=== PATIENT | female | born 1950 | race Two or more races ===

== ENCOUNTER 2024-02-19 20:55 | Inpatient (IN) | payer MEDICARE, MEDICAID ==
[~2024-02-19] VITALS: Ht 152.4 cm; Wt 60.8 kg
--- NOTE | 2024-02-19 21:00 | NUR ---
PT BIBA TO [facility] 5 FOR SYNCOPAL EPISODE.
[2024-02-19] MEDS: IV NS 1000 ML 1,000 ML IV ONE ×2 (21:03→23:03)
[2024-02-19 21:45] LABS: BASOPHILS # (AUTO) 0.1 K/UL (0.0-0.2); BASOPHILS % (AUTO) 0.5 % (0.0-2.0); EOSINOPHILS # (AUTO) 0.2 K/uL (0.0-0.7); EOSINOPHILS % (AUTO) 1.5 % (0.0-7.0); HEMOGLOBIN 11.3 g/dL (10.9-14.3); LYMPHOCYTES # (AUTO) 2.9 K/uL (0.8-4.8); LYMPHOCYTES % (AUTO) 22.4 % (20.5-51.5); MEAN CORPUSCULAR HEMOGLOBIN 29.2 uug (24.7-32.8); MEAN CORPUSCULAR HGB CONC 32 g/dL (32.3-35.6); MEAN CORPUSCULAR VOLUME 90.6 fL (75.5-95.3); MONOCYTES # (AUTO) 0.7 K/uL (0.1-1.30); MONOCYTES % (AUTO) 5.7 % (0.0-11.0); NEUTROPHILS # (AUTO) 9.2 K/uL (1.8-8.9); NEUTROPHILS % (AUTO) 69.9 % (38.5-71.5); PLATELET COUNT (AUTO) 259 K/uL (179-408); RED BLOOD CELL COUNT(AUTO) 3.87 MIL/uL (3.63-4.92); RED CELL DISTRIBUTION WIDTH 18.2 % (12.3-17.7); WHITE BLOOD COUNT (AUTO) 13.2 K/uL (3.8-11.8)
[2024-02-19 21:56] LABS: DIFFERENTIAL COMMENT 1
[2024-02-19 21:57] LABS: CALCIUM 9.3 mg/dL (8.5-10.1); CARBON DIOXIDE 23 mmol/L (21-32); CHLORIDE 108 mmol/L (98-107); CREATININE 1.2 mg/dL (0.6-1.3); GLUCOSE 211 mg/dL (74-106); POTASSIUM 3.3 mmol/L (3.5-5.1); SODIUM SERUM 143 mmol/L (136-145); UREA NITROGEN, BLOOD 21 mg/dL (7-18)
[2024-02-19 22:05] LABS: ALANINE AMINOTRANSFERASE 18 U/L (14-59); ALBUMIN 3.1 g/dL (3.4-5.0); ALKALINE PHOSPHATASE 96 U/L (50-136); ASPARTATE AMINOTRANSFERASE 14 U/L (15-37); BILIRUBIN,TOTAL 0.3 mg/dL (0.2-1.0); LIPASE 28 U/L (16-77); NT-PRO BNP 230 pg/mL (0-125); TOTAL PROTEIN, SERUM 7.4 g/dL (6.4-8.2)
[2024-02-19 22:11] LABS: LACTIC ACID 3.7 mmol/L (0.4-2.0)
--- NOTE | 2024-02-19 23:00 | NUR ---
Patient is hardstick, take time to insert PIV
[2024-02-19] MEDS ORDERED: ONDANSETRON 4 MG/2 ML VIAL ONE (23:01)
[2024-02-19] MEDS: ONDANSETRON 4 MG/2 ML VIAL IV ONE (23:04)
[2024-02-20] MEDS ORDERED: POTASSIUM CHLORIDE 50 ML ONE (00:19)
[2024-02-20] MEDS: POTASSIUM CHLORIDE 50 ML IV SCH (00:20)
--- NOTE | 2024-02-20 01:00 | NUR ---
PT'S DAUGHTER, ANGIE'Vidhi # IS : [phone].
[2024-02-20 02:54] LABS: *BILIRUBIN,URIN NEGATIVE (NEGATIVE); *CLARITY,URINE CLEAR (CLEAR); *COLOR,URINE YELLOW (YELLOW); *KETONES,URINE NEGATIVE (NEGATIVE); *PROTEIN,URINE NEGATIVE (NEGATIVE); *UROBILINOGEN,URINE 0.2 E.U./dl (NORMAL); LEUKOCYTE ESTERASE ,URINE NEGATIVE (NEGATIVE); NITRITE, URINE NEGATIVE (NEGATIVE); UGLUCOSE NEGATIVE (NEGATIVE)
[2024-02-20 02:55] LABS: *BLOOD, URINE TRACE (NEGATIVE)
[2024-02-20 03:02] LABS: RBC,URINE 0-3 /HPF (0-3); SQUAMOUS EPITHELIAL CELL,UR FEW /HPF (NONE SEEN); YEAST,URINE MODERATE /HPF (NONE SEEN)
[2024-02-20 03:04] LABS: BACTERIA,URINE NONE SEEN /HPF (NONE SEEN); WBC,URINE 0-3 /HPF (0-3)
--- NOTE | 2024-02-20 06:12 | NUR ---
Call [facility] for patient's acceptance
[2024-02-20] MEDS ORDERED: SENN8.6C5 PO (06:20)
[2024-02-20] MEDS ORDERED: FOLI1TAB94 PO (06:20)
[2024-02-20] MEDS ORDERED: CALC-469 (06:20)
[2024-02-20] MEDS ORDERED: METF500T PO (06:20)
[2024-02-20] MEDS ORDERED: DOCU100T10 PO (06:20)
[2024-02-20] MEDS ORDERED: ATOR40TA PO (06:20)
[2024-02-20] MEDS ORDERED: ASPI81TA31 PO (06:20)
[2024-02-20] MEDS ORDERED: ESCI5TAB PO (06:20)
[2024-02-20] MEDS ORDERED: LOSA25TA3 PO (06:20)
[2024-02-20] MEDS ORDERED: OMEP20CA15 PO (06:20)
[2024-02-20] MEDS ORDERED: METH2.5T (06:20)
--- NOTE | 2024-02-20 06:20 | NUR ---
GIULIANO spoke with Julianna Tompkins, patient is accepted for Tele bed for room 314
[2024-02-20] MEDS ORDERED: ACETAMINOPHEN 325 MG TABLET PO PRN (06:30)
[2024-02-20 07:14] LABS: BASOPHILS % (AUTO) 0.3 % (0.0-2.0); HEMATOCRIT 34.3 % (31.2-41.9); HEMOGLOBIN 11.2 g/dL (10.9-14.3); LYMPHOCYTES # (AUTO) 1.7 K/uL (0.8-4.8); LYMPHOCYTES % (AUTO) 9.9 % (20.5-51.5); MEAN CORPUSCULAR HEMOGLOBIN 29.3 uug (24.7-32.8); MEAN CORPUSCULAR HGB CONC 33 g/dL (32.3-35.6); MEAN CORPUSCULAR VOLUME 89.3 fL (75.5-95.3); MONOCYTES # (AUTO) 0.8 K/uL (0.1-1.30); MONOCYTES % (AUTO) 4.7 % (0.0-11.0); NEUTROPHILS # (AUTO) 14.3 K/uL (1.8-8.9); NEUTROPHILS % (AUTO) 85.1 % (38.5-71.5); PLATELET COUNT (AUTO) 222 K/uL (179-408); RED BLOOD CELL COUNT(AUTO) 3.84 MIL/uL (3.63-4.92); WHITE BLOOD COUNT (AUTO) 16.8 K/uL (3.8-11.8)
[2024-02-20 07:21] LABS: DIFFERENTIAL COMMENT 1
[2024-02-20 07:49] LABS: ALANINE AMINOTRANSFERASE 14 U/L (14-59); ALBUMIN 2.9 g/dL (3.4-5.0); ALKALINE PHOSPHATASE 92 U/L (50-136); ASPARTATE AMINOTRANSFERASE 11 U/L (15-37); BILIRUBIN,DIRECT 0.1 mg/dL (0.0-0.2); BILIRUBIN,TOTAL 0.5 mg/dL (0.2-1.0); CALCIUM 8.5 mg/dL (8.5-10.1); CARBON DIOXIDE 25 mmol/L (21-32); CHLORIDE 108 mmol/L (98-107); CREATININE 0.9 mg/dL (0.6-1.3); GLUCOSE 194 mg/dL (74-106); MAGNESIUM 1.6 mg/dL (1.8-2.4); NT-PRO BNP 251 pg/mL (0-125); PHOSPHOROUS 3.1 mg/dL (2.5-4.9); POTASSIUM 3.9 mmol/L (3.5-5.1); SODIUM SERUM 143 mmol/L (136-145); UREA NITROGEN, BLOOD 17 mg/dL (7-18)
[2024-02-20] MEDS: PANTOPRAZOLE SODIUM 40 MG TABLET.DR PO SCH (07:50)
[2024-02-20] MEDS ORDERED: PANTOPRAZOLE SODIUM 40 MG TABLET.DR PO ONE (07:50)
--- NOTE | 2024-02-20 08:04 | NUR ---
SBAR report given to DAE Beckham via telephone, pt trans to tele room 314.
--- NOTE | 2024-02-20 08:30 | NUR ---
RECEIVED PATIENT VIA GURNEY. CHECKED V/S SIGNS AND SKIN ASSESSMENT DONE. BELONGINGS ACCOUNTED FOR. KEEP PATIENT CLEAN AND COMFORTABLE. NOTIFIED DR. FLOREZ AN ADMITTING
[2024-02-20 08:48] VITALS: BP 149/78; TEMP 98.4; O2SAT 93
[2024-02-20] MEDS: IV NS 1000 ML 1,000 ML IV PRN (10:41)
[2024-02-20] MEDS: PIPERACILLIN SODIUM/TAZOBACTAM 3.375 G in IV DEXTROSE 5% 100 ML IV SCH (10:42)
[2024-02-20] MEDS: MAGNESIUM SULFATE/D5W 100 ML IV SCH (10:52)
--- NOTE | 2024-02-20 11:48 | NUR ---
BLADDER SCAN DONE BY ASSIGNED NURSE ORDERED BY DR GAUTAM HOUSE WITH [address] GAUTAM HOUSE TO INSERT A F/CATH AND LEAVE IN. TASK DELEGATED TO ASSIGNED NURSE.
[2024-02-20 11:58] VITALS: BP 147/77; TEMP 98.5; O2SAT 93
[2024-02-20] MEDS ORDERED: PIPERACILLIN SODIUM/TAZOBACTAM 3.375 G in IV DEXTROSE 5% 50 ML IV SCH (12:00)
[2024-02-20] MEDS ORDERED: CALC500T89 PO (12:37)
[2024-02-20] MEDS ORDERED: POLY17PO4 PO (12:37)
[2024-02-20 16:42] VITALS: BP 141/78; TEMP 98.9; O2SAT 96
[2024-02-20] MEDS: MAGNESIUM HYDROXIDE 30 ML LIQUID UDC PO PRN (18:20)
--- NOTE | 2024-02-20 18:21 | NUR ---
IMAGING TESTS DONE TODAY. PATIENT SCHEDULED TO HAVE MRCP MICAH; NO TIME YET IN DAY TIME. SOZYN GIVEN FOR UTI. NO ASE NOTED FROM IV ATB. 2 BAGS OF MAGNESIUM GIVEN. FAMILY ON THE BEDSIDE. QUINONES DRAINING WELL BY GRAVITY WITH YELLOW URINE OUTPUT 200.
--- NOTE | 2024-02-20 18:25 | NUR ---
PATIENT NPO POST MIDNIGHT.
--- NOTE | 2024-02-20 18:31 | NUR ---
MOM GIVEN. PATIENT TOLERATED IT. WILL ENDORSE TO THE NEXT SHIFT.
--- NOTE | 2024-02-20 19:30 | NUR ---
Received patient lying in bed asleep but easily arouse to verbal stimuli. No signs or symptoms of pain or SOB. IV site on right AC intact and patent. NSR on tele with HR of 93/min. F/C intact and draining via gravity. Safety measure initiated and call light within reached.
[2024-02-20 19:39] VITALS: BP 120/51; TEMP 98.4; O2SAT 94
[2024-02-21 00:24] VITALS: BP 138/69; TEMP 98.2; O2SAT 94
[2024-02-21 04:40] VITALS: BP 141/82; TEMP 99; O2SAT 94
--- NOTE | 2024-02-21 05:04 | NUR ---
Slept well through out the shift. In no apparent distress. No complain of pain or SOB. No adverse effect noted from IV antibiotics. IVF continue to infused. F/C intact an draining via gravity. Safety measure maintained and call light within reached.
[2024-02-21 07:21] VITALS: BP 136/75; TEMP 98.5
[2024-02-21 07:54] VITALS: BP 138/69; TEMP 98.5; O2SAT 93
[2024-02-21 07:54] LABS: CALCIUM 8.4 mg/dL (8.5-10.1); CARBON DIOXIDE 29 mmol/L (21-32); CHLORIDE 111 mmol/L (98-107); CREATININE 0.8 mg/dL (0.6-1.3); GLUCOSE 147 mg/dL (74-106); MAGNESIUM 2.2 mg/dL (1.8-2.4); POTASSIUM 3.6 mmol/L (3.5-5.1); SODIUM SERUM 144 mmol/L (136-145); UREA NITROGEN, BLOOD 12 mg/dL (7-18)
[2024-02-21 09:47] LABS: BASOPHILS # (AUTO) 0.1 K/UL (0.0-0.2); BASOPHILS % (AUTO) 0.6 % (0.0-2.0); EOSINOPHILS # (AUTO) 0.3 K/uL (0.0-0.7); EOSINOPHILS % (AUTO) 2.6 % (0.0-7.0); HEMATOCRIT 29.3 % (31.2-41.9); HEMOGLOBIN 9.7 g/dL (10.9-14.3); LYMPHOCYTES # (AUTO) 1.9 K/uL (0.8-4.8); LYMPHOCYTES % (AUTO) 19.1 % (20.5-51.5); MEAN CORPUSCULAR HEMOGLOBIN 29.6 uug (24.7-32.8); MEAN CORPUSCULAR HGB CONC 33 g/dL (32.3-35.6); MEAN CORPUSCULAR VOLUME 89.6 fL (75.5-95.3); MONOCYTES # (AUTO) 0.6 K/uL (0.1-1.30); MONOCYTES % (AUTO) 6.4 % (0.0-11.0); NEUTROPHILS # (AUTO) 7.2 K/uL (1.8-8.9); NEUTROPHILS % (AUTO) 71.3 % (38.5-71.5); PLATELET COUNT (AUTO) 197 K/uL (179-408); RED BLOOD CELL COUNT(AUTO) 3.27 MIL/uL (3.63-4.92); RED CELL DISTRIBUTION WIDTH 17.5 % (12.3-17.7); WHITE BLOOD COUNT (AUTO) 10.1 K/uL (3.8-11.8)
[2024-02-21 09:48] LABS: DIFFERENTIAL COMMENT 1
--- NOTE | 2024-02-21 11:00 | NUR ---
Patient picked up by ambulance via gurney to have procedure MRCP at [facility]. patient remained NPO. consent and questionnaires sent with patient. left in fair stable condition, vitals within normal limits. received call from lab, patient with gram + cocci for 4 blood cultures. left message to
--- NOTE | 2024-02-21 12:08 | NUR ---
WOUND CARE CONSULT: PT OFF CAMPUS AT THIS TIME FOR PROCEDURE. ADMISSION PHOTO INDICATES SACRAL DEEP TISSUE INJURY, PRESENT ON ADMISSION. MD IN AGREEMENT WITH PLAN OF CARE.
[2024-02-21 16:14] VITALS: BP 146/79; TEMP 98.5; O2SAT 95
[2024-02-21] MEDS: VANCOMYCIN HCL 750 MG in IV DEXTROSE 5% 250 ML IV SCH (17:11)
--- NOTE | 2024-02-21 17:50 | NUR ---
Patient alert and oriented x 1-2. returned from [facility] around 2:45pm from [facility], tolerated transport well. Vital sign within normal limits. Received order for Vancomycin IV; started 2nd peripheral line to Right hand 22G; tolerated well. Spouse at bedside; spoke with patient's daughter from out of town; explained plan of care. Seen and eval by Dr Greer lace inspector; dc'd telemetry status. Tolerated all meds; patient resumed previous diet; tolerated well with no nausea or vomiting. Reviewed patient's chart; endorsed to following shift.
[2024-02-21 19:34] VITALS: BP 126/69; TEMP 99.4; O2SAT 93
--- NOTE | 2024-02-21 19:45 | NUR ---
Received pt resting comfortably in bed. No SOB or s/s distress noted. AO1-2. VSS. Dressing on sacrum c/d/i. FC in place and draining. IV sites patent and intact. Safety precautions in place. Bed in lowest position with side rails up. Bed alarm on. Call light within reach. All needs attended to.
[2024-02-22 05:40] VITALS: BP 126/64; TEMP 98.7; O2SAT 93
--- NOTE | 2024-02-22 07:30 | NUR ---
AWAKE ALERT AND AWARE DENES DISCOMFORTS IVF IN PROGRESS WITH NO S/S OF INFILTERATION AT THIS TIME QUINONES CATH TO GRAVITY DRAINGE WITH NO HEMATURIA MADE COMFORTABLE WILL CONTINUE TO OBSERVE.
[2024-02-22 11:58] VITALS: BP 129/64; TEMP 98.4; O2SAT 96
--- NOTE | 2024-02-22 14:00 | NUR ---
REMAIN ON IV ATB ORDERED WITH NO ADVERSE OR ALLERGIC REACTIONS AT THIS TIME.
[2024-02-22 17:06] VITALS: BP 143/79; TEMP 98.1; O2SAT 92
--- NOTE | 2024-02-22 17:15 | NUR ---
QUINONES CATHETER REMOVED PER DR FLOREZ AT THIS TIME.
[2024-02-22 19:58] VITALS: BP 154/76; TEMP 98; O2SAT 96
[2024-02-23] VITALS (13 sets, daily range): BP systolic 154–180; BP diastolic 75–90; TEMP 97.5–98.9; O2SAT 92–96
--- NOTE | 2024-02-23 05:19 | NUR ---
Patient slept at short intervals, no noted signs of distress. No noted urinary retention, voiding freely without difficulty. Continue plan of care.
[2024-02-23 06:26] LABS: BASOPHILS % (AUTO) 0.5 % (0.0-2.0); EOSINOPHILS # (AUTO) 0.3 K/uL (0.0-0.7); HEMATOCRIT 29.6 % (31.2-41.9); LYMPHOCYTES % (AUTO) 23.4 % (20.5-51.5); MEAN CORPUSCULAR HEMOGLOBIN 29.9 uug (24.7-32.8); MEAN CORPUSCULAR HGB CONC 34 g/dL (32.3-35.6); MEAN CORPUSCULAR VOLUME 88.7 fL (75.5-95.3); MONOCYTES # (AUTO) 0.7 K/uL (0.1-1.30); MONOCYTES % (AUTO) 7.8 % (0.0-11.0); NEUTROPHILS # (AUTO) 5.4 K/uL (1.8-8.9); NEUTROPHILS % (AUTO) 64.3 % (38.5-71.5); PLATELET COUNT (AUTO) 245 K/uL (179-408); RED BLOOD CELL COUNT(AUTO) 3.34 MIL/uL (3.63-4.92); RED CELL DISTRIBUTION WIDTH 17.1 % (12.3-17.7); WHITE BLOOD COUNT (AUTO) 8.5 K/uL (3.8-11.8)
[2024-02-23 06:28] LABS: DIFFERENTIAL COMMENT 1
[2024-02-23 06:39] LABS: CALCIUM 8.5 mg/dL (8.5-10.1); CARBON DIOXIDE 27 mmol/L (21-32); CHLORIDE 110 mmol/L (98-107); CREATININE 0.8 mg/dL (0.6-1.3); GLUCOSE 156 mg/dL (74-106); POTASSIUM 3.3 mmol/L (3.5-5.1); SODIUM SERUM 145 mmol/L (136-145); UREA NITROGEN, BLOOD 7 mg/dL (7-18); VANCOMYCIN,TROUGH 14.9 ug/mL (10.0-20.0)
--- NOTE | 2024-02-23 07:49 | NUR ---
RECEIVED PATIENT IN BED AWAKE ALERT AND AWARE LANGUAGE BARRIERS BUT ABLE TO MAKE SIMPLE NEEDS KNOWN ON ROOM AIR WITH NO SHORTNESS OF BREATH IVF IN PROGRESS ORDERED VOIDING PER REPORT S/P QUINONES CATH REMOVAL YESTERDAY WILL OBSERVE.
[2024-02-23] MEDS: VANCOMYCIN IV 1,000 MG in IV DEXTROSE 5% 250 ML IV SCH (09:04)
[2024-02-23] MEDS: POTASSIUM CHLORIDE 20 MEQ TAB.PRT.SR PO ONE (13:21)
--- NOTE | 2024-02-23 16:01 | NUR ---
BLOOD PRESSURE IS 163/[address] FLOREZ WITH NEW ORDERS AND NOTED.
[2024-02-23] MEDS: AMLODIPINE 5 MG TABLET PO SCH (16:18)
--- NOTE | 2024-02-23 17:30 | NUR ---
PATIENTS CAME TO ME AND STATED THAT HIS IS NOT RESPONDING TO HIM SO I ENTERED INTO THE ROOM SAW THE PATIENT AWAKE WITH EMPTY GAZE DID NOT RESPOND VERBALLY ATTEMTED TO GIVE HER SOME WATER SHE WAS ABLE TO DRINK WITHOUT COUGHING WAS UNABLE TO SQUEEZE MY HAND WAS UNABLE TO HOLD HER ARMS AND LEGS UP CHECKED BLOOD SUGAR AND ITS 140 CODE STROKE CALLED AT THIS TIME BLOOD PRESSURE RANGED FROM 172/80-163/77
--- NOTE | 2024-02-23 17:55 | NUR ---
PATIENT TAKEN BY BED TO RADIOLOGY FOR CT HEAD.
[2024-02-23] MEDS ORDERED: SENNOSIDES 1 TABLET PO PRN (18:15)
--- NOTE | 2024-02-23 18:15 | NUR ---
PATIENT RETURNED BACK TO HER ROOM AND THE TELE DOCTOR DR AIDEE PENN ON THE SCREEN NOTIFIED HIM OF INCIDENTS AND HE ALSO SPOKE WITH PATIENTS DAUGHTER ON THE PHONE WHO GAVE HER DETAILS OF PATIENTS MEDICAL CONDITION AND PATIENT IS MORE AWAKE ALERT RELAYED HER NAME VERBALLY ABLE TO MOVE HER UPPER AND LOWER EXT AND THE DOCTOR STATED THAT HE IS RECOMMENDING MRI AND EEG AT THIS TIME.
--- NOTE | 2024-02-23 18:30 | NUR ---
CT HEAD IS NEGATIVE FOR INTRACRANIAL HEMORRHAGE CALLED AND NOTIFIED DR FLOREZ .
[2024-02-23 18:45] LABS: BASOPHILS # (AUTO) 0.1 K/UL (0.0-0.2); BASOPHILS % (AUTO) 0.6 % (0.0-2.0); EOSINOPHILS # (AUTO) 0.4 K/uL (0.0-0.7); EOSINOPHILS % (AUTO) 3.8 % (0.0-7.0); HEMATOCRIT 32.8 % (31.2-41.9); HEMOGLOBIN 10.8 g/dL (10.9-14.3); LYMPHOCYTES # (AUTO) 3.2 K/uL (0.8-4.8); LYMPHOCYTES % (AUTO) 34.4 % (20.5-51.5); MEAN CORPUSCULAR HEMOGLOBIN 29.3 uug (24.7-32.8); MEAN CORPUSCULAR HGB CONC 33 g/dL (32.3-35.6); MEAN CORPUSCULAR VOLUME 89.3 fL (75.5-95.3); MONOCYTES # (AUTO) 0.8 K/uL (0.1-1.30); MONOCYTES % (AUTO) 8.7 % (0.0-11.0); NEUTROPHILS # (AUTO) 4.9 K/uL (1.8-8.9); NEUTROPHILS % (AUTO) 52.5 % (38.5-71.5); PLATELET COUNT (AUTO) 266 K/uL (179-408); RED BLOOD CELL COUNT(AUTO) 3.68 MIL/uL (3.63-4.92); WHITE BLOOD COUNT (AUTO) 9.4 K/uL (3.8-11.8)
[2024-02-23] MEDS: ASPIRIN 81 MG TAB.CHEW PO SCH (18:47)
[2024-02-23 18:52] LABS: DIFFERENTIAL COMMENT 1
[2024-02-23 18:54] LABS: CARBON DIOXIDE 26 mmol/L (21-32); CHLORIDE 108 mmol/L (98-107); CREATININE 0.8 mg/dL (0.6-1.3); GLUCOSE 149 mg/dL (74-106); POTASSIUM 3.7 mmol/L (3.5-5.1); SODIUM SERUM 145 mmol/L (136-145); UREA NITROGEN, BLOOD 9 mg/dL (7-18)
--- NOTE | 2024-02-23 19:08 | NUR ---
UNABLE TO GIVE ASPIRIN ORDERED PATIENT FAILED THE SWALLOW EVAL AT THIS TIME.
--- NOTE | 2024-02-23 19:30 | NUR ---
Received patient in bed awake, drowsy, non verbally responsive with empty gaze. Aphasic. Unable to perform task. Not in respiratory distress. HOB elevated, safety measures in place. Continue plan of care.
[2024-02-23] MEDS: ATORVASTATIN 40 MG TABLET PO SCH (21:00)
--- NOTE | 2024-02-23 22:02 | NUR ---
NPO, patient failed bedside swallow eval.
--- NOTE | 2024-02-23 23:00 | NUR ---
Patient had an episode of bilious vomiting x 1, temp 100.4 HR 119, BP-175/90 Dylon Hlaey RAILROAD SIGNAL OPERATOR notified.
[2024-02-24] VITALS (13 sets, daily range): BP systolic 131–171; BP diastolic 63–91; TEMP 97.7–101.3; O2SAT 92–97
[2024-02-24] MEDS: ONDANSETRON 4 MG/2 ML VIAL IV PRN
[2024-02-24] MEDS: ACETAMINOPHEN 650 MG SUPP.RECT RC PRN (00:15)
--- NOTE | 2024-02-24 00:20 | NUR ---
Patient in bed with eyes closed, respiration even and unlabored, responsive to touch. Temp 101.4, tylenol supp given and cooling measures provided.
--- NOTE | 2024-02-24 06:41 | NUR ---
Patient awake, Moroccan speaking AXLE INSPECTOR instructed patient to squeeze her hand, patient responded and tried with very weak improvement manager. No more further episode of nausea and vomiting. Temp 99.3. Plan of care on going.
--- NOTE | 2024-02-24 07:12 | NUR ---
TEXT DR. BYRNES FOR MRI APPROVAL.
[2024-02-24] MEDS: METFORMIN HCL 500 MG TABLET PO SCH (08:00)
--- NOTE | 2024-02-24 08:00 | NUR ---
RECEIVED PATIENT IN BED WITH EYES CLOSED VERY WEAK SPEECH IS FAINT HAS LANGUAGE BARRIER OBEYS COMMANDS ON ROOM AIR WITH NO SHORTNESS OF BREATH SATS AT 97-98 PERCENT.RIGHT ARM WITH POOR CONCRETE TECHNICIAN HAS A PURE WICK FOR URINE WITH YELLOW URINE IN THE RECEPTACLE REMAIN ON IVF/IVATB WITH NO S/S OF INFILTERATION ON SITE.PATIENT HAS POOR VEINOUS ACCESS MD AWARE WILL ORDER A MIDLINE NURSING HOTEL OR MOTEL ROOM SERVICE SUPERVISOR NOTIFIED.WILL CONTINUE TO OBSERVE.
--- NOTE | 2024-02-24 08:30 | NUR ---
BLADDER SCANNED AND PATIENT HAD 632 ML OF URINE QUINONES CATETHER PLACED PER DR FLOREZ HE SAID TO PLACE AN INDWELLING CATETER IF URIN RESIDUAL IS 200-300 ML 700 ML OF YELLOW URINE OBTAINED.
[2024-02-24] MEDS: ENOXAPARIN SODIUM 40 MG/0.4 ML DISP.SYRIN SQ SCH (08:39)
[2024-02-24] MEDS: LOSARTAN POTASSIUM 25 MG TABLET PO SCH (09:00)
[2024-02-24] MEDS ORDERED: Medication Not On Formulary EA (Escitalopram Oxalate (Lexapro) 5 MG) PO SCH (09:00)
[2024-02-24] MEDS: MIRALAX 17 GM POWD.PACK PO SCH (09:00)
[2024-02-24] MEDS: CALCIUM CARBONATE 500 MG TABLET PO SCH (09:00)
[2024-02-24] MEDS: DOCUSATE SODIUM 100 MG CAPSULE PO SCH (09:00)
[2024-02-24] MEDS: ESCITALOPRAM OXALATE 10 MG TABLET PO SCH (09:00)
[2024-02-24] MEDS: FOLIC ACID 1 MG TABLET PO SCH (09:00)
[2024-02-24] MEDS ORDERED: Medication Not On Formulary EA (Omeprazole 20 MG) PO SCH (09:00)
--- NOTE | 2024-02-24 09:30 | NUR ---
MID LINE INSERTED TO HER RIGHT UPPER ARM ORDERED.
[2024-02-24] MEDS: FLUCONAZOLE 200 MG/NS 100ML IV 100 MG in PREMIXED 1 EACH IV SCH (10:20)
--- NOTE | 2024-02-24 11:35 | NUR ---
DIAZ YANG NP NEUROLOGY HERE TO SEE PATIENT WITH NEW ORDERS AND NOTED.
--- NOTE | 2024-02-24 11:37 | NUR ---
[facility] HERE PATIENT IS BEING PICKED UP AT THIS TIME FOR MRI BRAIN ORDERED AT THE BEDSIDE.
--- NOTE | 2024-02-24 13:50 | NUR ---
PATIENT RETURNED FROM [facility] AFTER HER MRI AND VANCOMICIN DOSE SCHEDULED FOR 1100 STARTED INFUSING AT 1352.
[2024-02-24 14:04] LABS: THYROID STIMULATING HORMONE 0.515 mIU/mL (0.358-3.740)
--- NOTE | 2024-02-24 16:17 | NUR ---
PATIENT SEEN BY THE SPPECH AND LANGUAGE THERAPIST FOR SWALLOWING EVAL AND SHE STATED THAT PATIENT SHOULD REMAIN NPO FAILLED THE EVAL PATIENTS AT THE BEDSIDE AWARE.
--- NOTE | 2024-02-24 18:00 | NUR ---
EEG DONE ORDERED PATIENT IS RESTING IN BED WITH EYES CLOSED OPENS EYES AND ATTEMPTS TO SPEAK WHEN SPOKEN TO OTHERWISE WILL PROMPTLY CLOSE EYES LOOS VERY WEAK.DR FLOREZ SPOKE WITH PATIENTS DAUGHTER AND EXPLAINED TO HER PATIENT POOR CONDITION AT THIS TIME.
--- NOTE | 2024-02-24 19:45 | NUR ---
Patient resting in bed with eyes closed, no signs of distress, easy to arouse. Follows simple instruction. No noted signs of pain/discomfort. MERCEDES midline intact and patent, line care provided. Safety measures in place. Continue plan of care.
[2024-02-25] VITALS (7 sets, daily range): BP systolic 126–160; BP diastolic 61–99; TEMP 98–99.2; O2SAT 93–98
[2024-02-25 06:53] LABS: CALCIUM 8.6 mg/dL (8.5-10.1); CARBON DIOXIDE 26 mmol/L (21-32); CHLORIDE 110 mmol/L (98-107); CREATININE 1.1 mg/dL (0.6-1.3); GLUCOSE 138 mg/dL (74-106); POTASSIUM 2.9 mmol/L (3.5-5.1); SODIUM SERUM 144 mmol/L (136-145); UREA NITROGEN, BLOOD 8 mg/dL (7-18)
--- NOTE | 2024-02-25 07:26 | NUR ---
Slept well through out the night, no signs of distress. SR on tele with HR of 85. Patient more alert now, obeys command.
--- NOTE | 2024-02-25 08:00 | NUR ---
PATIENT IN BED AWAKE ALERT RESPONDED BETTER MORE AUDIBLE AND COHERENT DENIES DISCOMFORTS ON ROOM AIR WITH NO SHORTNESS OF BREATH IVF IN PROGRESS VIA MID LINE RIGHT UPPER ARM WITH NO SOB AT THIS TIME TELE IS SR CALL LIGHT AND PERSONAL BELONGINGS ARE WITHIN EASY REACH MADE COMFORTABLE WILL OBSERVE.
[2024-02-25] MEDS: hydrALAZINE HCL 20 MG/1 ML VIAL IV PRN (08:15)
[2024-02-25] MEDS: POTASSIUM CHLORIDE 10 MEQ TAB.PRT.SR PO SCH (10:18)
--- NOTE | 2024-02-25 11:00 | NUR ---
PATIENT SEEN AND EVALUATED BY THE SLT WITH ORDER FOR PATIENT TO START ON ORAL DIET AND NOTED.
--- NOTE | 2024-02-25 14:00 | NUR ---
POTASSIUM LEVEL IS 2.9 SEEN BY ANGELA WITH NEW ORDER PATIENT RECEIVED A TOTAL OF 60 MEQ POTASSIUM ORALLY.
--- NOTE | 2024-02-25 16:06 | NUR ---
NOTED THAT PATIENT VOMITED PARTLY UNDIGESTED FOOD YELLOWISH IN COLOR WAS MEDICATED WITH ZOFRAN ORDERED MADE COMFORTABLE WILL OBSERVE.
--- NOTE | 2024-02-25 17:40 | NUR ---
UNABLE TO GIVE PATIENT HER METFORMIN ORDERED BECAUSE PATIENT REFUSED HER DINNER AND METFORMIN CANNOT BE GIVEN ON AN EMPTY STOMACH.
[2024-02-26] VITALS: BP 150/70; TEMP 99.7; O2SAT 94
[2024-02-26 04:00] VITALS: BP 156/76; TEMP 98.9; O2SAT 94
--- NOTE | 2024-02-26 05:17 | NUR ---
Patient slept minimally overnight. She is a light sleeper. She is awake and alert, able to follow commands. No changes in condition. IVF continue infusing via MERCEDES midline. Granger catheter draining by gravity with clear yellow urine.
--- NOTE | 2024-02-26 07:02 | NUR ---
Patient had an episode of non-bilious vomiting. Zofran was administered.
--- NOTE | 2024-02-26 07:30 | NUR ---
0730 PT LAYING IN THE BED A/OX3, PRIMARY ANGUILLAN SPEAKING. PT ON RA, NO SOB OR DISTRESS NOTED, NO COMPLAIN OF PAIN. IV SITE IS PATENT AND INTACT. SAFETY MEASURES IN PLACE, CALL LIGHT IN REACH.
[2024-02-26 07:46] VITALS: BP 155/72; TEMP 98.6; O2SAT 94
--- NOTE | 2024-02-26 09:45 | NUR ---
PT REFUSED MORNING MEDS BESIDES MIRALAX, LOSARTAN. WHILE SHE WAS TAKING SIPS OF WATER PT WAS COUGHING. NO N/V AT THE MOMENT. PT SEEN BY THE SPEECH THERAPY (SEE NOTES) D/C TELEMETRY
[2024-02-26 10:36] LABS: CALCIUM 8.9 mg/dL (8.5-10.1); CARBON DIOXIDE 23 mmol/L (21-32); CHLORIDE 110 mmol/L (98-107); CREATININE 1.1 mg/dL (0.6-1.3); GLUCOSE 145 mg/dL (74-106); POTASSIUM 2.8 mmol/L (3.5-5.1); SODIUM SERUM 142 mmol/L (136-145); UREA NITROGEN, BLOOD 8 mg/dL (7-18)
--- NOTE | 2024-02-26 11:28 | NUR ---
WOUND CARE: PT PRESENTS WITH SACRAL SCARRING WITH DISCOLORATION, PRESENT ON ADMISSION. DISCUSSED SKIN PROTECTION WITH NURSING STAFF. PT IS UNCOOPERATIVE AT TIMES. QUINONES CATHETER NOTED. MD IN AGREEMENT WITH PLAN OF CARE.
[2024-02-26] MEDS: POTASSIUM CHLORIDE 50 ML IV SCH (12:58)
[2024-02-26] MEDS ORDERED: BENZOCAINE 20% TOPICAL SPRAY 59.2 ML MM ONE (13:00)
[2024-02-26 13:08] LABS: BASOPHILS # (AUTO) 0.1 K/UL (0.0-0.2); BASOPHILS % (AUTO) 0.5 % (0.0-2.0); EOSINOPHILS % (AUTO) 0.2 % (0.0-7.0); HEMATOCRIT 32.7 % (31.2-41.9); HEMOGLOBIN 10.6 g/dL (10.9-14.3); LYMPHOCYTES # (AUTO) 1.8 K/uL (0.8-4.8); LYMPHOCYTES % (AUTO) 13.9 % (20.5-51.5); MEAN CORPUSCULAR HEMOGLOBIN 28.6 uug (24.7-32.8); MEAN CORPUSCULAR HGB CONC 33 g/dL (32.3-35.6); MEAN CORPUSCULAR VOLUME 88.2 fL (75.5-95.3); MONOCYTES # (AUTO) 0.5 K/uL (0.1-1.30); MONOCYTES % (AUTO) 3.8 % (0.0-11.0); NEUTROPHILS # (AUTO) 10.6 K/uL (1.8-8.9); NEUTROPHILS % (AUTO) 81.6 % (38.5-71.5); PLATELET COUNT (AUTO) 296 K/uL (179-408); RED BLOOD CELL COUNT(AUTO) 3.71 MIL/uL (3.63-4.92); RED CELL DISTRIBUTION WIDTH 17.2 % (12.3-17.7)
[2024-02-26 13:24] LABS: DIFFERENTIAL COMMENT 1
--- NOTE | 2024-02-26 15:39 | NUR ---
1539 BP 176/93 HR 104 Apresoline was administered BY THE BEDSIDE.
[2024-02-26] MEDS ORDERED: BENZOCAINE 20% TOPICAL SPRAY 59.2 ML MM PRN (16:00)
[2024-02-26 19:00] VITALS: BP 139/66; TEMP 98.7; O2SAT 94
[2024-02-26 22:34] LABS: *BILIRUBIN,URIN NEGATIVE (NEGATIVE); *COLOR,URINE YELLOW (YELLOW); *KETONES,URINE NEGATIVE (NEGATIVE); *PROTEIN,URINE 1+ (NEGATIVE); *UROBILINOGEN,URINE 0.2 E.U./dl (NORMAL); LEUKOCYTE ESTERASE ,URINE NEGATIVE (NEGATIVE); NITRITE, URINE NEGATIVE (NEGATIVE); UGLUCOSE NEGATIVE (NEGATIVE)
[2024-02-26] MEDS ORDERED: CEFTRIAXONE /D5W 50ML IVPB **ER PYXIS IV ONE (22:46)
[2024-02-26] MEDS: CEFTRIAXONE 1 G in IV DEXTROSE 5% 50 ML IV SCH (22:49)
[2024-02-26 23:04] LABS: *BLOOD, URINE TRACE (NEGATIVE)
[2024-02-26 23:19] LABS: *CLARITY,URINE EH131521 (CLEAR)
[2024-02-26 23:21] LABS: BACTERIA,URINE FEW /HPF (NONE SEEN); SQUAMOUS EPITHELIAL CELL,UR FEW /HPF (NONE SEEN); WBC,URINE 0-3 /HPF (0-3)
[2024-02-27 06:00] VITALS: BP 158/77; TEMP 98.4; O2SAT 95
--- NOTE | 2024-02-27 06:00 | NUR ---
PATIENT ASLEEP IN BED. EASILY AROUSABLE. SLEPT WELL THROUGHOUT THE NIGHT. IVF INFUSING WELL. DENIES PAIN. CALL LIGHT IN REACH. BED ALARM ON. ALL NEEDS ATTENDED.
--- NOTE | 2024-02-27 07:00 | NUR ---
received patient awake, lying in bed, refusing labs. Explained to patient the importance. Patient still refused. Patient oriented x 2. uncooperative. Granger with clear yellow urine draining. On room air. no signs of acute distress noted. All needs met at this time
--- NOTE | 2024-02-27 09:00 | NUR ---
Patient refused lovenox injection. Also refused daily lab draw. Stated she didnt want to be stuck with a needle. Explained the importance of lovenox, and risks of not taking it. Also explained that potassium was 2.8 and it was important to recheck. patient still declined both
[2024-02-27 11:57] VITALS: BP 127/75; TEMP 97.9; O2SAT 99
[2024-02-27] MEDS: PROTEIN SUPPLEMENT (PROSTAT) 30 ML LIQUID PO SCH (12:56)
[2024-02-27 15:59] VITALS: BP 124/70; TEMP 98.4; O2SAT 98
[2024-02-27 16:55] LABS: BASOPHILS # (AUTO) 0.1 K/UL (0.0-0.2); BASOPHILS % (AUTO) 0.8 % (0.0-2.0); EOSINOPHILS # (AUTO) 0.3 K/uL (0.0-0.7); EOSINOPHILS % (AUTO) 2.5 % (0.0-7.0); HEMATOCRIT 31.5 % (31.2-41.9); HEMOGLOBIN 10.2 g/dL (10.9-14.3); LYMPHOCYTES # (AUTO) 2.2 K/uL (0.8-4.8); LYMPHOCYTES % (AUTO) 21.6 % (20.5-51.5); MEAN CORPUSCULAR HEMOGLOBIN 28.6 uug (24.7-32.8); MEAN CORPUSCULAR HGB CONC 32 g/dL (32.3-35.6); MEAN CORPUSCULAR VOLUME 88.7 fL (75.5-95.3); MONOCYTES # (AUTO) 0.6 K/uL (0.1-1.30); MONOCYTES % (AUTO) 6.2 % (0.0-11.0); NEUTROPHILS # (AUTO) 7.1 K/uL (1.8-8.9); NEUTROPHILS % (AUTO) 68.9 % (38.5-71.5); PLATELET COUNT (AUTO) 267 K/uL (179-408); RED BLOOD CELL COUNT(AUTO) 3.56 MIL/uL (3.63-4.92); WHITE BLOOD COUNT (AUTO) 10.3 K/uL (3.8-11.8)
[2024-02-27 17:00] LABS: DIFFERENTIAL COMMENT 1
[2024-02-27] MEDS: ACETAMINOPHEN 650 MG/20.3 ML LIQUID UDC PO PRN (17:22)
[2024-02-27 17:36] LABS: CALCIUM 8.5 mg/dL (8.5-10.1); CARBON DIOXIDE 24 mmol/L (21-32); CHLORIDE 112 mmol/L (98-107); CREATININE 1.1 mg/dL (0.6-1.3); GLUCOSE 134 mg/dL (74-106); MAGNESIUM 1.6 mg/dL (1.8-2.4); PHOSPHOROUS 2.7 mg/dL (2.5-4.9); POTASSIUM 3.2 mmol/L (3.5-5.1); SODIUM SERUM 145 mmol/L (136-145); UREA NITROGEN, BLOOD 9 mg/dL (7-18)
--- NOTE | 2024-02-27 18:00 | NUR ---
metformin held due to patient not eating. patient also refusing blood sugar checks.
[2024-02-27] MEDS ORDERED: PHENOL/SODIUM PHENOLATE SPRAY 177 ML BOTTLE MM PRN (19:15)
--- NOTE | 2024-02-27 20:00 | NUR ---
PATIENT AWAKE IN BED. A/O X2. DENIES PAIN. IVF INFUSING WELL TO RIGHT UPPER ARM MID-LINE. VS WNL. F/C INTACT AND DRAINING. BED ALARM ON. CALL LIGHT IN REACH. ALL NEEDS ATTENDED.
[2024-02-27 20:29] VITALS: BP 129/60; TEMP 98.4; O2SAT 96
[2024-02-28 04:00] VITALS: TEMP 98.3
--- NOTE | 2024-02-28 06:39 | NUR ---
PATIENT ASLEEP IN BED. EASILY AROUSABLE. SLEPT WELL THROUGHOUT THE NIGHT. IVF INFUSING WELL. QUINONES DRAINING WELL. DENIES PAIN. CALL LIGHT IN REACH. BED ALARM ON. ALL NEEDS ATTENDED.
--- NOTE | 2024-02-28 07:00 | NUR ---
RECEIVED PATIENT LYING IN BED AWAKE. ALERT AND ORIENTED X 3. CALM, PLEASANT, ABLE TO MAKE NEEDS KNOWN. DISCUSSED PAIN MEDICATION REGIME. ADVISED PATIENT THAT HE HAS MORPHINE ER BID, AND CAN HAVE OXYCODONE IR Q4. PATIENT STATED UNDERSTANDING AND STATED HE WOULD WAIT UNTIL HIS 0900 DOSE FOR THE MORPHINE. PATIENT ON ROOM AIR, VOIDING INTO URINAL. ALL NEEDS MET AT THIS TIME.
[2024-02-28] MEDS: CYANOCOBALAMIN 1,000 MCG TABLET PO SCH (08:59)
--- NOTE | 2024-02-28 09:00 | NUR ---
patient refused lovenox. educated patient on need for medication, and risks involved if not taken. Patient still refused.
[2024-02-28 11:00] VITALS: BP 149/74; TEMP 98.8; O2SAT 97
[2024-02-28] MEDS ORDERED: ASPI81TA31 PO (12:24)
[2024-02-28] MEDS ORDERED: LOSA25TA3 PO (12:24)
[2024-02-28] MEDS ORDERED: ESCI5TAB PO (12:24)
[2024-02-28] MEDS ORDERED: ATOR40TA PO (12:24)
[2024-02-28] MEDS ORDERED: DOCU100T10 PO (12:24)
[2024-02-28] MEDS ORDERED: METF-440 PO (12:24)
[2024-02-28] MEDS ORDERED: POLY17PO4 PO (12:24)
[2024-02-28] MEDS ORDERED: OMEP20CA15 PO (12:24)
[2024-02-28] MEDS ORDERED: AMOX-430 PO (12:24)
[2024-02-28] MEDS ORDERED: FOLI1TAB94 PO (12:24)
[2024-02-28] MEDS ORDERED: CALC500T89 PO (12:24)
[2024-02-28] MEDS ORDERED: SENN-175 PO (12:24)
--- NOTE | 2024-02-28 12:27 | NUR ---
prostat was on tray. unable to scan "invalid barcode". patient refused, did not consume
[2024-02-28 13:24] LABS: BASOPHILS # (AUTO) 0.1 K/UL (0.0-0.2); EOSINOPHILS # (AUTO) 0.2 K/uL (0.0-0.7); EOSINOPHILS % (AUTO) 2.6 % (0.0-7.0); HEMATOCRIT 31.6 % (31.2-41.9); HEMOGLOBIN 10.4 g/dL (10.9-14.3); LYMPHOCYTES % (AUTO) 22.9 % (20.5-51.5); MEAN CORPUSCULAR HEMOGLOBIN 28.8 uug (24.7-32.8); MEAN CORPUSCULAR HGB CONC 33 g/dL (32.3-35.6); MEAN CORPUSCULAR VOLUME 87.6 fL (75.5-95.3); MONOCYTES # (AUTO) 0.6 K/uL (0.1-1.30); MONOCYTES % (AUTO) 7.4 % (0.0-11.0); NEUTROPHILS # (AUTO) 5.7 K/uL (1.8-8.9); NEUTROPHILS % (AUTO) 66.1 % (38.5-71.5); PLATELET COUNT (AUTO) 265 K/uL (179-408); RED CELL DISTRIBUTION WIDTH 16.7 % (12.3-17.7); WHITE BLOOD COUNT (AUTO) 8.7 K/uL (3.8-11.8)
[2024-02-28 13:52] LABS: DIFFERENTIAL COMMENT 1
[2024-02-28 14:05] LABS: CALCIUM 8.6 mg/dL (8.5-10.1); CARBON DIOXIDE 24 mmol/L (21-32); CHLORIDE 109 mmol/L (98-107); GLUCOSE 126 mg/dL (74-106); MAGNESIUM 1.6 mg/dL (1.8-2.4); PHOSPHOROUS 3.1 mg/dL (2.5-4.9); SODIUM SERUM 145 mmol/L (136-145); UREA NITROGEN, BLOOD 9 mg/dL (7-18)
[2024-02-28 16:18] VITALS: BP 150/76; TEMP 97.8; O2SAT 97
--- NOTE | 2024-02-28 19:56 | NUR ---
PATIENT POTASSIUM 3.0 AND MAGNESIUM 1.6. MD AWARE, NO NEW ORDERS AT THIS TIME.
[2024-02-28 20:00] VITALS: TEMP 98.8
[2024-02-29 06:00] VITALS: TEMP 98.7
--- NOTE | 2024-02-29 07:52 | NUR ---
received patient lying in bed awake. greeted patient and asked how she was. patient states she was not doing well because she wants to go home. Encouragement and understanding provided. Patient on room air. Granger in place drain clear yellow urine. midline in MERCEDES running NS @ 80ml/hr. No signs of acute distress noted. All needs met. Whiteboard updated.
[2024-02-29 11:57] VITALS: BP 148/67; TEMP 97.8; O2SAT 96
[2024-02-29] MEDS ORDERED: MIDO5TAB5 PO (12:56)
[2024-02-29] MEDS: POTASSIUM CHLORIDE 20 MEQ TAB.PRT.SR PO ONE (13:27)
[2024-02-29 16:46] VITALS: BP 141/78; TEMP 97.9; O2SAT 94
[2024-02-29 20:23] VITALS: BP 157/81; TEMP 98.2; O2SAT 93
[2024-03-01 05:38] VITALS: BP 138/69; TEMP 98.5; O2SAT 95
[2024-03-01 11:31] VITALS: BP 132/66; TEMP 97.9; O2SAT 96
[2024-03-01 12:41] LABS: BASOPHILS # (AUTO) 0.1 K/UL (0.0-0.2); BASOPHILS % (AUTO) 0.8 % (0.0-2.0); EOSINOPHILS # (AUTO) 0.2 K/uL (0.0-0.7); EOSINOPHILS % (AUTO) 2.5 % (0.0-7.0); HEMATOCRIT 32.4 % (31.2-41.9); HEMOGLOBIN 10.7 g/dL (10.9-14.3); LYMPHOCYTES # (AUTO) 2.6 K/uL (0.8-4.8); LYMPHOCYTES % (AUTO) 26.3 % (20.5-51.5); MEAN CORPUSCULAR HEMOGLOBIN 28.8 uug (24.7-32.8); MEAN CORPUSCULAR HGB CONC 33 g/dL (32.3-35.6); MEAN CORPUSCULAR VOLUME 87.6 fL (75.5-95.3); MONOCYTES # (AUTO) 0.7 K/uL (0.1-1.30); MONOCYTES % (AUTO) 6.9 % (0.0-11.0); NEUTROPHILS # (AUTO) 6.3 K/uL (1.8-8.9); NEUTROPHILS % (AUTO) 63.5 % (38.5-71.5); PLATELET COUNT (AUTO) 282 K/uL (179-408); RED BLOOD CELL COUNT(AUTO) 3.69 MIL/uL (3.63-4.92); RED CELL DISTRIBUTION WIDTH 16.8 % (12.3-17.7); WHITE BLOOD COUNT (AUTO) 9.8 K/uL (3.8-11.8)
[2024-03-01 12:54] LABS: DIFFERENTIAL COMMENT 1
[2024-03-01 13:15] LABS: CALCIUM 8.8 mg/dL (8.5-10.1); CARBON DIOXIDE 25 mmol/L (21-32); CHLORIDE 108 mmol/L (98-107); CREATININE 0.9 mg/dL (0.6-1.3); GLUCOSE 136 mg/dL (74-106); MAGNESIUM 1.5 mg/dL (1.8-2.4); PHOSPHOROUS 3.2 mg/dL (2.5-4.9); SODIUM SERUM 141 mmol/L (136-145); UREA NITROGEN, BLOOD 9 mg/dL (7-18)
[2024-03-01] MEDS: POTASSIUM CHLORIDE 20 MEQ TAB.PRT.SR PO ONE (14:40)
[2024-03-01] MEDS: MAGNESIUM OXIDE 400 MG TABLET PO ONE (14:40)
--- NOTE | 2024-03-01 15:48 | NUR ---
PT WAS REFUSING CARE AND VITALS IN THE MORNING, PT IS AT BEDSIDE AND PT IS COMPLIANT WITH CARE, VITALS STABLE PT COMPLIANT WITH MEDICATIONS AND LAB. .NO DISTRESS NOTED AT THIS TIME. PT PORSHA PAIN OR DISCOMFORT.
[2024-03-01 16:15] VITALS: BP 149/76; TEMP 97.9; O2SAT 95
[2024-03-02 06:08] VITALS: BP 142/72; TEMP 97.8; O2SAT 94
--- NOTE | 2024-03-02 06:58 | NUR ---
PT SLEPT WELL. SHE HAD ALL HER SCHEDULED MEDS. NO PAIN OR DISTRESS NOTED. QUINONES CATHETER IS DRAINING VIA GRAVITY. NO BM FOR 2 DAYS.PT WAS COOPERATIVE. ALL NEEDS WERE ATTENDED.PENDING DISCHARGE SOON.
--- NOTE | 2024-03-02 08:00 | NUR ---
RECEIVED PATIENT IN BED AWAKE ALERT BUT CONFUSED X3, REFUSED ALL MEDS AND BREAKFAST. DENIES PAIN OR SOB. OBSERVED
[2024-03-02] MEDS: REMEDY ESSENTIAL ZINC PASTE 113 GM TP PRN (08:54)
[2024-03-02 11:40] VITALS: BP 143/81; TEMP 98.2; O2SAT 97
--- NOTE | 2024-03-02 12:00 | NUR ---
SEEN BY HOSPITALIST FOR F/U SEE NOTES, DISCHARGE ORDER GIVEN ELECTRICAL AND RADIO MOCK UP MECHANIC MADE AWARE
[2024-03-02 15:46] VITALS: BP 155/77; TEMP 98.6; O2SAT 96
--- NOTE | 2024-03-02 17:09 | NUR ---
discharged home stable via ambulance, discharge and f/u instruction given to
== END 2024-03-02 17:35 | disposition home health service (06) | DRG 871 ==
LOC: ER 20:58 → TELE3 02-20 07:38 → MEDSURG3 02-21 08:40 → TELE3 02-23 18:36 → MEDSURG3 02-26 10:15
PROVIDERS: ADMIT Nurse Practitioner Family; ATTEND Internal Medicine
PROC: 05HB33Z Insertion of Infusion Device into Right Basilic Vein, Percutaneous Approach (ICD-10-PCS; principal; 2024-02-24)
DX: A41.9 Sepsis, unspecified organism (principal); G93.41 Metabolic encephalopathy; J69.0 Pneumonitis due to inhalation of food and vomit; B37.49 Other urogenital candidiasis; E87.20 Acidosis, unspecified; F03.918 Unspecified dementia, unspecified severity, with other behavioral disturbance; G45.9 Transient cerebral ischemic attack, unspecified; R47.01 Aphasia; Z79.82 Long term (current) use of aspirin; Z79.899 Other long term (current) drug therapy; M21.821 Other specified acquired deformities of right upper arm; K83.8 Other specified diseases of biliary tract; Z90.49 Acquired absence of other specified parts of digestive tract; E87.6 Hypokalemia; E86.0 Dehydration; T14.90XS Injury, unspecified, sequela; W19.XXXS Unspecified fall, sequela; K59.00 Constipation, unspecified; R55 Syncope and collapse; N28.9 Disorder of kidney and ureter, unspecified; K38.1 Appendicular concretions; I95.9 Hypotension, unspecified
CPT/HCPCS: 36415; 70450; 70551; 71045; 74018; 74181; 83605; 83690; 83735; 83921; 84100; 84443; 84484; 85025; 85730; 86850; 86900; 86901; 87040; 87077; 93005; 93307; 93880; 95819; A4606; A4663; A6213; C1758; G0378; J0360; J0696; J1450; J1650; J2405; J2543; J3370; J3475; J3480; J7040; J7050